=== PATIENT | male | born 1965 | race Caucasian/White ===

== ENCOUNTER 2018-05-25 05:31 | Emergency (ER) | payer OTHER ==
[~2018-05-25] VITALS: Ht 167.6 cm; Wt 85.3 kg
[~2018-05-25 05:31] MED LIST: ACET-8331 PO
[2018-05-25 05:44] VITALS: BP 147/95
--- NOTE | 2018-05-25 05:52 | NUR ---
PT AMBULATED TO ED BED 11
--- NOTE | 2018-05-25 05:52 | NUR ---
53/M CAME IN W C/O SEVERE ITCHING, REDNESS, "WORMS" ALL OVER BODY X 5 DAYS. DRY,SCALY, REDDENED SKIN NOTED ALL OVER BODY. PT REPORTS HE WAS SEEN IN [place] ON SUNDAY DX: PSYCHOSOMATIC PSORIASIS, DX: PREDNISONE. PMH: PSORIASIS
--- NOTE | 2018-05-25 07:13 | NUR ---
PATIENT IS NO LONGER IN THE BED ASSUMED THAT PATIENT HAS ELOPED LWBS NO FURTHER CARE RENDERED.
== END 2018-05-25 07:13 | disposition left against medical advice (07) ==
LOC: MED 05:31
DX: R21 Rash and other nonspecific skin eruption (principal); Z53.21 Procedure and treatment not carried out due to patient leaving prior to being seen by health care provider